=== PATIENT | female | born 1945 | race Caucasian/White ===

== ENCOUNTER → 2017-03-08 | Outpatient (CLI) | payer OTHER ==
[~2017-03-08] MED LIST: ASPCH81X PO; MELO7.5T5 PO; OFLO0.3S OPL; PRED1SUS3 OPL; TNR50 PO
--- NOTE | 2017-03-08 15:29 | MAMMOGRAPHY REPORT ---
BILATERAL DIGITAL SCREENING MAMMOGRAM TOMOSYNTHESIS WITH CAD: 03/08/2017 CLINICAL HISTORY: Routine screening. Patient has no complaints. TECHNIQUE: Breast tomosynthesis in addition to standard 2D mammography was performed. Current study was also evaluated with a Computer Aided Detection (CAD) system. COMPARISON: Comparison is made to exams dated: 02/10/2016 mammogram, 02/04/2015 mammogram, 10/01/2013 mammogram, 10/14/2011 mammogram, 03/24/2010 mammogram - [facility], and 10/26/2007. BREAST COMPOSITION: There are scattered areas of fibroglandular density in both breasts. FINDINGS: There are stable postsurgical/posttreatment changes in the left breast, with asymmetry of t he size of the breasts, right greater than left. There is expected architectural distortion, dystrop hic calcification and surgical clips in the lower inner posterior left breast at the site of prior danyel mpectomy. Benign coarse calcifications in the right breast. No new suspicious mass, architectural d istortion or cluster of microcalcifications is seen. IMPRESSION: ACR BI-RADS CATEGORY 1: NEGATIVE There is no mammographic evidence of malignancy. A 1 year screening mammogram is recommended. The pa tient will receive written notification of the results. Approximately 10% of breast cancers are not detected with mammography. A negative mammographic report should not delay biopsy if a clinically suggestive mass is present. Dulce Maria Gonsalves M.D. ay/:03/08/2017 14:50:17 Radio Division Captain: Merry MONTANO(Vi)(Rahda), [facility] letter sent: Normal 1/2 BI-RADS Code: ACR BI-RADS Category 1: Negative
== END | disposition home or self-care (01) ==
LOC: C.MAMM 13:15
PROVIDERS: ATTEND Family Medicine
DX: Z12.31 Encounter for screening mammogram for malignant neoplasm of breast (principal)